=== PATIENT | female | born 1975 | race American Indian/Alaskan Native ===

== ENCOUNTER 2021-09-30 17:44 | Emergency (ER) | payer SELFPAY ==
[2021-09-30] MEDS ORDERED: HYDROcodone/ACETAMINOPHEN 10-325MG TAB PO ONE (18:19)
--- NOTE | 2021-09-30 18:55 | Emergency Department Report ---
Blank Doc - Documentation Documentation: 45-year-old female that presents with headache, neck pain, lower back pain, left hip pain, left thumb pain and right shoulder pain status post fall that occurred prior to arrival. Patient stated had a mechanical trip and fall and landed to her right shoulder neck and back area. Otherwise denies any other symptoms or complaints. 1- This is a initial triage assessment/medical screening only. Full assessment and work-up will be completed once the patient is in proper hospital gown, ED bed and in a private room setting. This initial assessment/diagnostic orders/clinical plan/ treatment(s) is/are subject to change based on pt's health status, clinical progression and re-assessment by fellow clinical providers in the ED. Further treatment and workup at subsequent clinical providers discretion. Patient/guardians urged not to elope from ED as their condition may be serious if not clinically assessed and managed. 2-imaging studies ordered 3-cervical collar ordered and notified RN of order. The patient was evaluated in the emergency department for symptoms described in the history of present illness. He/she was evaluated in the context of the global COVID-19 pandemic, which necessitated consideration that the patient might be at risk for infection with the virus that causes COVID-19. Institutional protocols and algorithms that pertain to the evaluation of patients at risk for COVID-19 are in a state of rapid change based on information released by regulatory bodies including the CDC and federal and state organizations. These policies and algorithms were followed during the patient's care in the emergency department. Please note that these policies, procedures and recommendations changed on a rapid basis.
--- NOTE | 2021-09-30 18:58 | XRay Report ---
XR shoulder 2+V RT INDICATION: pain s/p fall COMPARISON: None. FINDINGS/IMPRESSION: Anterior shoulder dislocation with associated Hill-Sachs deformity. Signer Name: Robert Wyman MD Signed: 09/30/2021 6:53 PM Workstation Name: [id number]
[2021-09-30] MEDS ORDERED: ETOMIDATE 20 MG/10 ML INJ IV ONE (19:06)
[2021-09-30] MEDS ORDERED: ONDANSETRON 4 MG/2 ML INJ IV ONE (19:16)
[2021-09-30] MEDS ORDERED: fentaNYL 100 MCG/2 ML INJ IV ONE (19:16)
--- NOTE | 2021-09-30 19:21 | XRay Report ---
Lumbar spine, single frontal view HISTORY: Pain COMPARISON: None FINDINGS: Single frontal view demonstrates no evidence of acute fracture. Signer Name: Griffin Nesbitt MD Signed: 09/30/2021 7:17 PM Workstation Name: [id number]
--- NOTE | 2021-09-30 19:23 | XRay Report ---
Left hand, 4 views HISTORY: Pain after fall COMPARISON: None FINDINGS: Acute mildly displaced comminuted fracture of the proximal left thumb metacarpal shaft. No discrete intra-articular involvement. No joint subluxation. No additional fracture. Signer Name: Griffin Nesbitt MD Signed: 09/30/2021 7:19 PM Workstation Name: [id number]
--- NOTE | 2021-09-30 19:33 | Cat Scan Report ---
CT head/brain wo con, CT cervical spine wo con INDICATION: fall with pain. TECHNIQUE: CT head and cervical spine without contrast. All CT scans at this location are performed u sing CT dose reduction for ALARA by means of automated exposure control. COMPARISON: None. FINDINGS: HEAD: BRAIN PARENCHYMA: No acute intracranial hemorrhage. No evidence of recent infarct. No mass effect or midline shift. VENTRICULAR SYSTEM/EXTRA-AXIAL SPACES: Ventricles are normal for age. No extra-axial fluid collection . ORBITS: Normal as visualized. SKELETAL SYSTEM/SOFT TISSUES: Normal bones and soft tissues. PARANASAL SINUSES/MASTOID AIR CELLS: No significant abnormality. CERVICAL: Alignment: Normal. No acute subluxation. Geographic Bone Lesion: None present. Fracture: No acute fracture. Degenerative Changes: Mild multilevel degenerative changes are present. Epidural Hematoma: Not present. Prevertebral / Paraspinal Soft Tissues: Unremarkable. IMPRESSION: 1. No acute intracranial abnormality. 2. No acute abnormality of the cervical spine. Signer Name: Griffin Nesbitt MD Signed: 09/30/2021 7:28 PM Workstation Name: [id number]
--- NOTE | 2021-09-30 19:47 | Emergency Department Report ---
HPI - General Chief Complaint: Fall Time Seen by Provider: 09/30/21 18:17 - HPI HPI: Reassessment 6 The patient is a 45-year-old female present with a chief complaint of pain after fall downstairs. The patient states today she slipped on wet stairs and fell down approximately 10 steps. Patient denies loss of consciousness but states she landed on her right shoulder. Patient complains of pain to the right side of her neck right shoulder right upper arm and left thumb. Patient states her last p.o. occurred last night ED Past Medical Hx - Past Medical History Previous Medical History?: Yes Additional medical history: FIBROID TUMOR - Surgical History Past Surgical History?: Yes Additional Surgical History: UTERINE FIBROID REMOVAL, - Family History Family history: no significant - Social History Smoking Status: Never Smoker Substance Use Type: None (Denies illicit drug use), Alcohol (Occasional) - Medications Home Medications: Home Medications Medication Instructions Recorded Confirmed Last Taken Type Cyclobenzaprine [Flexeril] 10 mg PO TID PRN #14 10/01/21 Unknown Rx HYDROcodone/APAP 5-325 [Grayson 1 - 2 each PO Q6HR PRN #30 tablet 10/01/21 Unknown Rx 5/325] ED Review of Systems ROS: Stated complaint: FALL/SHOULDER INJURY Other details as noted in HPI Constitutional: no symptoms reported Eyes: denies: eye pain ENT: denies: throat pain Respiratory: no symptoms reported Cardiovascular: denies: chest pain Endocrine: no symptoms reported Gastrointestinal: denies: abdominal pain Genitourinary: denies: dysuria Musculoskeletal: arthralgia, myalgia. denies: back pain Neurological: denies: headache Physical Exam - Physical Exam Vital Signs: Vital Signs 09/30/21 17:48 Temperature 98.4 F Pulse Rate 78 Respiratory 20 Rate Blood Pressure 142/84 [Left] Blood Pressure 142/84 [Right] O2 Sat by Pulse 98 Oximetry Physical Exam: GENERAL: The patient is well-developed well-nourished female sitting in wheelchair appearing to be in moderate disc. [] HEENT: Normocephalic. Atraumatic. Extraocular motions are intact. Patient has moist mucous membranes. NECK: Supple. No axial step-offs CHEST/LUNGS: Clear to auscultation. There is no respiratory distress noted. HEART/CARDIOVASCULAR: Regular. There is no tachycardia. There is no gallop rub or murmur. 2+ right radial pulse ABDOMEN: Abdomen is soft, nontender. Patient has normal bowel sounds. There is no abdominal distention. SKIN: There is no rash. There is no edema. There is no diaphoresis. NEURO: The patient is awake, alert, and oriented. The patient is cooperative. The patient has no focal neurologic deficits. The patient has normal speech. GCS 15 MUSCULOSKELETAL: There is tenderness palpation of the left thenar eminence. There is pain and decreased range of motion of the right shoulder. ED Course Vital Signs 09/30/21 17:48 Temperature 98.4 F Pulse Rate 78 Respiratory 20 Rate Blood Pressure 142/84 [Left] Blood Pressure 142/84 [Right] O2 Sat by Pulse 98 Oximetry - Consultations Consultation #1: 09/30/21 Case discussed with orthopedic surgeon Dr. Ozuna- will come in to reduce shoulder - Orthopedic Joint Reduction Joint #1 Consent Obtained: verbal consent Time Out Performed: Yes Side: right Joint Reduction Location: shoulder Analgesia: moderate sedation Shoulder Technique Used (if applicable): traction/counter-traction, external rotation Technique Used: traction/counter-traction Post-Reduction Neuro Exam: intact Post-Reduction Vascular Exam: intact Post Reduction X-Ray Obtained: Yes Post Reduction X-Ray Results: not reduced Splint Applied: Yes Patient Tolerated Procedure: no complications ED Medical Decision Making - Radiology Data Radiology results: report reviewed (CT head, CT cervical spine right shoulder x- ray #1, right shoulder x-ray #2, right shoulder x-ray #3, right shoulder x-ray #4), image reviewed (CT head, CT cervical, right shoulder x-ray #1, right shoulder x-ray #2, right shoulder x-ray #3, right shoulder x-ray #4) interpreted by me: Lumbar spine x-ray-no acute fracture seen Right shoulder s-hgj-jjdrikge shoulder dislocation. No fracture seen Left hand g-frj-vqnyyidkot first metacarpal shaft fracture Right shoulder x-ray #2-dislocation persists Right shoulder x-ray #3-dislocation persistent Right shoulder x-ray #4-successful reduction, no fracture [facility] [address] [place] [address] Cat Scan Report Signed Patient: CONCEPCION VALERO MR#: [id number] : 1975 Acct:[id number] Age/Sex: 45 / F ADM Date: 09/30/21 Loc: ED Attending Dr: Ordering Physician: RUY CLINE NP Date of Service: 09/30/21 Procedure(s): CT cervical spine wo con Accession Number(s): [id number] cc: RUY CLINE NP CT head/brain wo con, CT cervical spine wo con INDICATION: fall with pain. TECHNIQUE: CT head and cervical spine without contrast. All CT scans at this location are performed using CT dose reduction for ALARA by means of automated exposure control. COMPARISON: None. FINDINGS: HEAD: BRAIN PARENCHYMA: No acute intracranial hemorrhage. No evidence of recent infarct. No mass effect or midline shift. VENTRICULAR SYSTEM/EXTRA-AXIAL SPACES: Ventricles are normal for age. No extra-axial fluid collection. ORBITS: Normal as visualized. SKELETAL SYSTEM/SOFT TISSUES: Normal bones and soft tissues. PARANASAL SINUSES/MASTOID AIR CELLS: No significant abnormality. CERVICAL: Alignment: Normal. No acute subluxation. Geographic Bone Lesion: None present. Fracture: No acute fracture. Degenerative Changes: Mild multilevel degenerative changes are present. Epidural Hematoma: Not present. Prevertebral / Paraspinal Soft Tissues: Unremarkable. IMPRESSION: 1. No acute intracranial abnormality. 2. No acute abnormality of the cervical spine. Signer Name: Jayme Nesbitt MD Signed: 09/30/2021 7:28 PM Workstation Name: [id number] Transcribed By: JS Dictated By: JAYME NESBITT MD Electronically Authenticated By: JAYME NESBITT MD Signed James e/Time: 09/30/211927 DD/ 23 TD/TT: Print [facility] [address] [place] [address] Cat Scan Report Signed Patient: CONCEPCION VALERO MR#: [id number] : 1975 Acct:[id number] Age/Sex: 45 / F ADM Date: 09/30/21 Loc: ED Attending Dr: Ordering Physician: RUY CLINE NP Date of Service: 09/30/21 Procedure(s): CT head/brain wo con Accession Number(s): [id number] cc: RUY BABAYEV,SERVER PROGRAMMER CT head/brain wo con, CT cervical spine wo con INDICATION: fall with pain. TECHNIQUE: CT head and cervical spine without contrast. All CT scans at this location are performed using CT dose reduction for ALARA by means of automated exposure control. COMPARISON: None. FINDINGS: HEAD: BRAIN PARENCHYMA: No acute intracranial hemorrhage. No evidence of recent infarct. No mass effect or midline shift. VENTRICULAR SYSTEM/EXTRA-AXIAL SPACES: Ventricles are normal for age. No extra-axial fluid collection. ORBITS: Normal as visualized. SKELETAL SYSTEM/SOFT TISSUES: Normal bones and soft tissues. PARANASAL SINUSES/MASTOID AIR CELLS: No significant abnormality. CERVICAL: Alignment: Normal. No acute subluxation. Geographic Bone Lesion: None present. Fracture: No acute fracture. Degenerative Changes: Mild multilevel degenerative changes are present. Epidural Hematoma: Not present. Prevertebral / Paraspinal Soft Tissues: Unremarkable. IMPRESSION: 1. No acute intracranial abnormality. 2. No acute abnormality of the cervical spine. Signer Name: Jayme Nesbitt MD Signed: 09/30/2021 7:28 PM Workstation Name: [id number] Transcribed By: ALEX Dictated By: JAYME NESBITT MD Electronically Authenticated By: JAYME NESBITT MD Signed Date/Time: 09/30/211927 DD/ 23 TD/TT: Print Cancel [facility] [address] [place] [address] XRay Report Signed Patient: CONCEPCION VALERO MR#: [id number] : 1975 Acct:[id number] Age/Sex: 45 / F ADM Date: 09/30/21 Loc: ED Attending Dr: Ordering Physician: RUY CLINE NP Date of Service: 09/30/21 Procedure(s): XR spine lumbosacral 2-3V Accession Number(s): [id number] cc: RUY CLINE NP Fluoro Time In Minutes: Lumbar spine, single frontal view HISTORY: Pain COMPARISON: None FINDINGS: Single frontal view demonstrates no evidence of acute fracture. Signer Name: Jayme Nesbitt MD Signed: 09/30/2021 7:17 PM Workstation Name: [id number] Transcribed By: ALEX Dictated By: JAYME NESBITT MD Electronically Authenticated By: JAYME NESBITT MD Signed Date/Time: 09/30/211916 DD/ 15 TD/TT: Print [employer] [address] [address] XRay Report Signed Patient: CONCEPCION VALERO MR#: [id number] : 1975 Acct:[id number] Age/Sex: 45 / F ADM Date: 09/30/21 Loc: ED Attending Dr: Ordering Physician: RUY CLINE NP Date of Service: 09/30/21 Procedure(s): XR shoulder 2+V RT Accession Number(s): [id number] cc: RUY CLINE NP Fluoro Time In Minutes: XR shoulder 2+V RT INDICATION: pain s/p fall COMPARISON: None. FINDINGS/IMPRESSION: Anterior shoulder dislocation with associated Hill-Sachs deformity. Signer Name: Robert Wyman MD Signed: 09/30/2021 6:53 PM Workstation Name: [id number] Transcribed By: LIONEL Dictated By: Robert Wyman MD Electronically Authenticated By: Robert Wyman MD Signed Date/Time: 09/30/211852 DD/ 51 TD/TT: Print [employer] [address] [address] XRay Report Signed Patient: CONCEPCION VALERO MR#: [id number] : 1975 Acct:[id number] Age/Sex: 45 / F ADM Date: 09/30/21 Loc: ED Attending Dr: Ordering Physician: RUY CLINE NP Date of Service: 09/30/21 Procedure(s): XR hand 3+V LT Accession Number(s): [id number] cc: RUY CLINE NP Fluoro Time In Minutes: Left hand, 4 views HISTORY: Pain after fall COMPARISON: None FINDINGS: Acute mildly displaced comminuted fracture of the proximal left thumb metacarpal shaft. No discrete intra-articular involvement. No joint subluxation. No additional fracture. Signer Name: Jayme Nesbitt MD Signed: 09/30/2021 7:19 PM Workstation Name: [id number] Transcribed By: ALEX Dictated By: JAYME NESBITT MD Electronically Authenticated By: JAYME NESBITT MD Signed Date/Time: 09/30/211918 DD/ 16 TD/TT: Print [address] [address] XRay Report Signed Patient: CONCEPCION VALERO MR#: [id number] : 1975 Acct:[id number] Age/Sex: 45 / F ADM Date: 09/30/21 Loc: ED Attending Dr: Ordering Physician: SOMMER CANDELARIA MD Date of Service: 09/30/21 P rocedure(s): XR shoulder 1V RT Accession Number(s): [id number] cc: SOMMER CANDELARIA MD Fluoro Time In Minutes: EXAMINATION: Right shoulder radiograph, one view, 09/30/2021 at 8:51 PM CLINICAL INFORMATION / INDICATION: Trauma. Shoulder dislocation. Post reduction evaluation. COMPARISON: Right shoulder radiograph, 09/30/2021 at 6:44 PM FINDINGS: Right glenohumeral dislocation is again noted with the humeral head medial and inferior to the glenoid. Signer Name: Jeni Owens MD Signed: 09/30/2021 9:06 PM Workstation Name: [id number] Transcribed By: CODIE Dictated By: Jeni Owens MD Electronically Authenticated By: Jeni Owens MD Signed Date/Time: 09/30/212105 DD/ 04 TD/TT: [employer] [address] [address] XRay Report Signed Patient: CONCEPCION VALERO MR#: [id number] : 1975 Acct:[id number] Age/Sex: 45 / F ADM Date: 09/30/21 Loc: ED Attending Dr: Ordering Physician: SOMMER CANDELARIA MD Date of Service: 09/30/21 Procedure(s): XR shoulder 1V RT Accession Number(s): [id number] cc: SOMMER CANDELARIA MD Fluoro Time In Minutes: Right shoulder, single frontal view HISTORY: Postred uction COMPARISON: 09/30/2021 at 8:51 PM. FINDINGS: There is persistent dislocation of the right glenohumeral joint. Prominent Hill-Sachs deformity is again seen. No new skeletal abnormality. Signer Name: Jayme Nesbitt MD Signed: 09/30/2021 9:37 PM Workstation Name: [id number] Transcribed By: ALEX Dictated By: JAYME NESBITT MD Electronically Authenticated By: JAYME NESBITT MD Signed Date/Time: 09/30/212136 DD/ 35 TD/TT: Print [employer] [address] [address] XRay Report Signed Patient: CONCEPCION VALERO MR#: [id number] : 1975 Acct:[id number] Age/Sex: 45 / F ADM Date: 09/30/21 Loc: ED Attending Dr: Ordering Physician: SOMMER CANDELARIA MD Date of Service: 09/30/21 P rocedure(s): XR forearm RT Accession Number(s): [id number] cc: SOMMER CANDELARIA MD Fluoro Time In Minutes: Right forearm, 3 views HISTORY: Injury COMPARISON: None FINDINGS: No acute fracture. Remote ulnar styloid avulsion fracture. No joint malalignment. Soft tissues are unremarkable. IMPRESSION: No acute process Signer Name: Jayme Nesbitt MD Signed: 09/30/2021 9:36 PM Workstation Name: [id number] Transcribed By: ALEX Dictated By: JAYME NESBITT MD Electronically Authenticated By: JAYME NESBITT MD Signed Date/Time: 09/30/212135 DD/ 34 TD/TT: Print [employer] [address] [address] XRay Report Signed Patient: CONCEPCION VALERO MR#: [id number] : 1975 Acct:[id number] Age/Sex: 45 / F ADM Date: 09/30/21 Loc: ED Attending Dr: Ordering Physician: FARIBA OZUNA Date of Service: 09/30/21 Procedure(s): XR shoulder 1V RT Accession Number(s): [id number] cc: FARIBA OZUNA Fluoro Time In Minutes: RIGHT SHOULDER 1 VIEW(S), 09/30/21 10:27 PM INDICATION / CLINICAL INFORMATION: post reduction. COMPARISON: 09/30/21 9:09 PM FINDINGS: BONES / JOINT(S): Successful closed reduction of anterior shoulder dislocation. Impaction deformity of the posterior lateral humeral head likely represent Hill- Sachs deformity. No significant arthritis. SOFT TISSUES: No significant abnormality. ADDITIONAL FINDINGS: None. Signer Name: Titus Kothari MD Signed: 09/30/2021 10:51 PM Workstation Name: [id number] Transcribed By: DT Dictated By: Danny Kothari MD Electronically Authenticated By: Danny Kothari MD Signed Date/Time: 09/30/212250 DD/ 47 TD/TT: - Differential Diagnosis Closed head injury, ICH, cervical fracture, shoulder fracture, shoulder dis Critical care attestation.: If time is entered above; I have spent that time in minutes in the direct care of this critically ill patient, excluding procedure time. ED Disposition Clinical Impression: Dislocation of right shoulder joint, Fracture of metacarpal, first, left hand, Closed head injury Disposition: HOME / SELF CARE / HOMELESS Is pt being admited?: No Does the pt Need Aspirin: No Condition: Stable Instructions: Shoulder Dislocation, [id number] Additional Instructions: Return to the emergency department should you develop worsening symptoms, inability to tolerate food or liquids, high fever or any other concerns Prescriptions: Cyclobenzaprine [Flexeril] 10 mg PO TID PRN #14 PRN Reason: Muscle Spasm HYDROcodone/APAP 5-325 [Grayson 5/325] 1 - 2 each PO Q6HR PRN #30 tablet PRN Reason: Pain Referrals: PRIMARY CARE, [Primary Care Provider] - 3-5 Days FARIBA OZUNA MD [Staff Physician] - 3-5 Days (Dr. Ozuna is an orthopedic surgeon. Please follow-up with him for further) Time of Disposition: 00:29
[2021-09-30] MEDS ORDERED: HYDROmorphone 1 MG/1 ML INJ IV ONE (21:05)
--- NOTE | 2021-09-30 21:11 | XRay Report ---
EXAMINATION: Right shoulder radiograph, one view, 09/30/2021 at 8:51 PM CLINICAL INFORMATION / INDICATION: Trauma. Shoulder dislocation. Post reduction evaluation. COMPARISON: Right shoulder radiograph, 09/30/2021 at 6:44 PM FINDINGS: Right glenohumeral dislocation is again noted with the humeral head medial and inferior to the glenoid. Signer Name: Jeni Owens MD Signed: 09/30/2021 9:06 PM Workstation Name: [id number]
--- NOTE | 2021-09-30 21:40 | XRay Report ---
Right forearm, 3 views HISTORY: Injury COMPARISON: None FINDINGS: No acute fracture. Remote ulnar styloid avulsion fracture. No joint malalignment. Soft tiss ues are unremarkable. IMPRESSION: No acute process Signer Name: Griffin Nesbitt MD Signed: 09/30/2021 9:36 PM Workstation Name: [id number]
--- NOTE | 2021-09-30 21:41 | XRay Report ---
Right shoulder, single frontal view HISTORY: Postreduction COMPARISON: 09/30/2021 at 8:51 PM. FINDINGS: There is persistent dislocation of the right glenohumeral joint. Prominent Hill-Sachs defor mity is again seen. No new skeletal abnormality. Signer Name: Griffin Nesbitt MD Signed: 09/30/2021 9:37 PM Workstation Name: [id number]
[2021-09-30] MEDS ORDERED: KETOROLAC 30 MG/1 ML INJ IV ONE (21:55)
[2021-09-30] MEDS ORDERED: MIDAZOLAM 5 MG/5 ML INJ MDV IV NR ×2 (22:00→22:20)
[2021-09-30] MEDS ORDERED: MIDAZOLAM 5 MG/5 ML INJ MDV IV ONE (22:06)
--- NOTE | 2021-09-30 22:55 | XRay Report ---
RIGHT SHOULDER 1 VIEW(S), 09/30/21 10:27 PM INDICATION / CLINICAL INFORMATION: post reduction. COMPARISON: 09/30/21 9:09 PM FINDINGS: BONES / JOINT(S): Successful closed reduction of anterior shoulder dislocation. Impaction deformity o f the posterior lateral humeral head likely represent Hill-Sachs deformity. No significant arthritis. SOFT TISSUES: No significant abnormality. ADDITIONAL FINDINGS: None. Signer Name: Titus Kothari MD Signed: 09/30/2021 10:51 PM Workstation Name: [id number]
[2021-10-01 06:22] VITALS: BP 121/77
--- NOTE | 2021-10-01 12:28 | Procedure Note ---
Date of procedure: 09/30/21 Pre-op diagnosis: Anterior dislocation, right shoulder Post-op diagnosis: same Procedure: This is a 45-year-old female who presented to the emergency room after a slip and fall in which she sustained a right shoulder dislocation subcoracoid anterior type. The emergency room physician was unable to reduce the dislocation so orthopedics was consulted. History and physical examination along with x-rays showed a simple subcoracoid anterior dislocation for the right glenohumeral joint. Neurovascular examination was normal. After the procedure was explained and consent was given, IV Versed was given incrementally for a total of 4 mg. Once appropriate relaxation was achieved the arm was gently pulled longitudinally down the long axis of the body while the business banking sales assistant provided minimal countertraction with a sheet in the axilla. This produced a gentle palpable pop and the shoulder was reduced quite easily. Post-reduction x-rays showed no evidence of any fracture or other complication as well as clearly normal catholic of the glenohumeral joint, right shoulder SHe was given post-procedure instructions and to follow-up in our office in less than 2 weeks. Anesthesia: GETA (IV Versed (given incrementally 5 mg))
== END 2021-10-01 06:22 | disposition home or self-care (01) ==
LOC: ED 17:44
DX: S62.202A Unspecified fracture of first metacarpal bone, left hand, initial encounter for closed fracture (principal); S43.004A Unspecified dislocation of right shoulder joint, initial encounter; W19.XXXA Unspecified fall, initial encounter; Y93.89 Activity, other specified; Y92.89 Other specified places as the place of occurrence of the external cause; Y99.8 Other external cause status
CPT/HCPCS: 23650; 70450; 72100; 72125; 73020; 73030; 73090; 73130; 96374; 96375; 99284; J1170; J1885; J2250; J2405; J3010; J3490